=== PATIENT | male | born 1980 | race Caucasian/White ===

== ENCOUNTER → 2024-12-29 07:32 | Outpatient (CLI) | payer OTHER, SELFPAY ==
[2024-12-29 10:12] LABS: Add Manual Diff / Slide Review NO; Hematocrit 42.5 % (41-53); Hemoglobin 14.7 g/dL (13.5-17.5); Lymphocytes Absolute Auto 1400 /uL (1100-4500); Mean Corpuscular HGB Conc 34.6 % (30-36); Mean Corpuscular Hemoglobin 31.6 PG (26-34); Mean Corpuscular Volume 91.5 fL (80-100); Platelet Count 279 X10^3/uL (150-400)
[2024-12-29 10:31] LABS: Hemoglobin A1C% w Est Avg Glu 5.8 % (4.0-6.0)
[2024-12-29 10:38] LABS: Alanine Aminotransferase 30 IU/L (<50); Albumin 4.1 g/dL (3.5-5.0); Albumin Globulin Ratio 1.7 (1.0-2.8); Alkaline Phosphatase 67 U/L (38-126); Blood Urea Nitrogen 13 mg/dL (9-20); Calcium 9.1 mg/dL (8.4-10.2); Carbon Dioxide 29 mmol/L (22-32); Chloride 102 mmol/L (98-107); Cholesterol 179 mg/dL (140-199); Estimated Glomerular Filt Rate > 60 mL/min (>60); Globulin 2.4 g/dL (1.7-4.1); Glucose 115 mg/dL (70-99); HDL Cholesterol 67 mg/dL (40-60); HEMOLYSIS < 15 (0-50); Potassium 4.7 mmol/L (3.4-5.1); Sodium 138 mmol/L (137-145); Total Protein 6.5 g/dL (6.3-8.2); Triglycerides 54 mg/dL (35-150)
[2024-12-29 11:06] LABS: TSH w/ Reflex to FT4 0.82 uIU/mL (0.47-4.68)
[2024-12-29 11:52] LABS: Microalbumi Creatinin Ratio Ur 6.0 ug/mg CR (<30)
== END ==
PROVIDERS: PCP Family Medicine; Referring Provider Family Medicine; Visit Provider Family Medicine
DX: E78.5 Hyperlipidemia, unspecified (principal); R68.82 Decreased libido; R53.83 Other fatigue; R45.89 Other symptoms and signs involving emotional state
CPT/HCPCS: 36415; 80053; 80061; 82043; 82570; 83036; 84402; 84403; 84443; 85025